=== PATIENT | female | born 1995 ===

== ENCOUNTER → 2016-05-12 | Day surgery (SDC) | payer OTHER ==
[~2016-05-12] MED LIST: BUPIVACAINE/EPINEPHRINE 0.25% PF 10 ML VIAL ONE; KETOROLAC TROMETHAMINE 30 MG/ML (IVP) VIAL IV PUSH ONE; LACTATED RINGER'S 1000 ML INJ 1,000 ML ONE; LIDOCAINE HCL 1% 50 ML VIAL ONE; MEPERIDINE HCL 25 MG/ML VIAL ONE; MIDAZOLAM HCL 2 MG/2 ML VIAL ONE; NEOMYCIN/POLYMYXIN/BACITRACIN OINT 15 GM TUBE ONE; ONDANSETRON HCL 4 MG/2 ML VIAL IV PUSH ONE; PROPOFOL 200 MG/20 ML AMP IV ONE; ceFAZolin INJ 1,000 MG VIAL ONE
--- NOTE | 2016-05-12 14:12 | MH ---
cc: MOON BRUCE DATE OF ADMISSION: 05/12/2016 SCHEDULED PROCEDURE Labial revision/reduction. INDICATION Chronic pain, discomfort and inability to wear her exercise clothing or certain uniforms, asymmetrical and excessively long labia. HISTORY OF PRESENT CONDITION The patient is a 20-year-old single white female, 0, para 0 with LMP April 30, 2016, who saw me approximately 1 month ago complaining of labial asymmetry and a length that was getting caught in her clothing and causing pain, discomfort and irritation. Indeed on measuring the labia on the left it is at least 6-8 cm, labia on the right is about 5-6. It is apparent that this is causing irritation and difficulty with hygiene. She is therefore a candidate for this to be removed. PAST MEDICAL HISTORY Her general health is excellent. She has no chronic or systemic illnesses. SOCIAL HISTORY She does not smoke, drink or use of illicit drugs. She is not active sexually. She has already graduated from [employer] at the age of 20 and plans to enroll in med school. She is one of triplets and her sister had lymphoma. Her brother is in good health. ALLERGIES She has no allergies. MEDICATION She is on no medication. PHYSICAL EXAMINATION VITAL SIGNS: Her weight is 137. Her height is 5 feet 3 inches. Her blood pressure is 110/60. NECK: She has no thyroid enlargement. LUNGS: Her lungs are clear to auscultation. CARDIAC: Her heart rate and rhythm are regular. ABDOMEN: Her abdomen is benign. PELVIC: Perineum revealed the findings as noted above. Her cervix is nulliparous. There is no discharge. The uterus is tiny. Ovaries and minimally palpable. IMPRESSION Impression at this point is excessive labial tissue that is physically interfering with quality of life and causing infection. PLAN Plan is to revise the labial tissue and diminish its quantity to effect optimal activity in the future. She understands the risks of the procedure are hematoma, infection, chronic pain, inadequate removal of tissue. The benefits are resumption of normal athletic and quality of life. She has signed consents and is scheduled for Tuesday. Moon Bruce MD PPC/TLL /11:43 AM /1:09 PM
--- NOTE | 2016-05-28 08:03 | MP ---
cc: MOON BRUCE DATE OF SURGERY: 05/12/2016 PREOPERATIVE DIAGNOSIS Excessive labial tissue interfering with exercise, clothing and general comfort. POSTOPERATIVE DIAGNOSIS Excessive labial tissue interfering with exercise, clothing and general comfort. PROCEDURE Revision of asymmetric and unusually long labial tissue in a young woman. ANESTHESIA General. SURGEON Carito DORA Vargas is a 21-year-old who is having difficulty with routine exercise, clothing and bathing suits, and generalized discomfort due to an excessively long labia, specifically on the left. She is not yet sexually active. This was evaluated in the office and is found to be in excess of 6 cm on the left and close to 6 cm on the right. The decision was made for a reduction of the labia under anesthesia. This was performed without difficulty, taking tissue from either side to even out the contours and get a good cosmetic result. This was not sent to pathology. There was no bleeding. There was no evidence of hematoma. The cosmetic closure was appropriate. Lidocaine was injected throughout the area and she was sent home with lidocaine ointment. Estimated blood loss was minimal. Sponge, instrument and needle count correct. She tolerated the procedure well. DETAILS OF PROCEDURE The patient was identified as Sam Joel. She and her mother were consented in the holding area. She was taken to the operating room, placed under general anesthesia, prepped and draped in the usual sterile fashion in the dorsal lithotomy position. Careful evaluation of the labia was performed and hemostats were placed at the level of anticipated excision and left on to create a crush injury which was then infiltrated with lidocaine on the proximal side. This was 1 cm below the clitoris on either side. First the patient's left side was evaluated. The hemostat was removed and a knife used to excise the excessive labia. 4-0 Monocryl on an SH was placed underneath the skin to avoid any space and collection of fluid and then a cosmetic subcuticular closure was performed. This was repeated on the patient's right side in two steps because of some involvement of the labia majora near the area of the clitoris. At the end of the case there was no evidence of hematoma or bleeding. It was a good cosmetic closure. Lidocaine was again infiltrated throughout the area. She was placed in dorsal supine position, awoken and taken to the recovery room in stable condition. MD JO ANN Sears/KEVIN /11:24 AM /7:48 AM
== END | disposition home or self-care (01) ==
LOC: ESDC 10:40
PROVIDERS: ATTEND Obstetrics & Gynecology
DX: N90.69 Other specified hypertrophy of vulva (principal)
CPT/HCPCS: 00400; 15839; J0690; J1885; J2175; J2250; J2405; J3010; J7120